=== PATIENT | female | born 1955 | race African-American/Black ===

== ENCOUNTER 2018-04-23 13:32 | Inpatient (IN) | payer MEDICARE, OTHER ==
[~2018-04-23] VITALS: Ht 172.7 cm; Wt 74.1 kg
--- NOTE | ~2018-04-23 | MORECARE ---
CASE MANAGEMENT DISCHARGE SUMMARY PATIENT: FILOMENA OTERO UNIT: [id number] ADM DATE: 04/23/18 AGE: 62 : 53 SEX: F ROOM/BED: D.2140 AUTHOR: NATALIE,DOC PHYSICIAN: REFERRING PHYSICIAN: CARLY HAYES MD DATE OF SERVICE: 05/01/18 Discharge Plan Patient Name: FILOMENA OTERO Facility: [facility]:[place] : 1955 Planned Disposition: Home with Home Health Anticipated Discharge Date: 05/01/18 Discharge Date: Expected LOS: 8 Initial Reviewer: [id number] Initial Review Date: 04/23/2018 Generated: 05/01/18 7:29 pm Comments DCP- Discharge Planning Updated by [id number]: Jasbir Jerez on 05/01/18 5:[address] Patient Name: FILOMENA OTERO Encounter No: [id number] : 1955 Primary Insurance: MEDICARE A & B Anticipated DC Date: 05-01-2018 Planned Disposition: Home with Home Health External Planned Provider: [facility] DCP follow-up note: CM SPOKE TO BEDSIDE NURSE WHO INFORMED CM THAT PT IS REPORTING NO TRANSPORTATION HOME THIS EVENING. CM MET WITH PT IN ROOM WHO HAS NOT CALLED HER FAMILY YET. BEDSIDE NURSE INFORMED CM THAT SHE CALLED JACKI PINTO, , WHO REPORTED NO TRANSPORTATION TO [facility]ATEGY EXECUTION CONSULTANT PT TODAY. CM NOTIFIED CM TRANSITIONAL STUDIES INSTRUCTOR WHO ASSISTED WITH CONTACTING PT'S DAUGHTER, ARIN, , WHO CALLED PT IN ROOM. PT DISCUSSED HAVING SOMEONE COME AND PICK HER UP WITH HER DAUGHTER WHO STATED THERE WAS NO ONE AVAILABLE THAT SHE WAS AWARE OF. CM CALLED [employer], RECEIVED QUOTE OF $290, INFORMED PT AND DAUGHTER ON THE PHONE. PT AND DAUTHTER DENIED HAVING FUNDS FOR [facility] TRANSPORT. PT INSTRUCTED HER DAUGHTER TO CALL PT'S SISTER SANDRITA AND JACKI, TO SEE IF ONE OF THEM WILL COME AND GET PT IN HER CAR. PT WILL NOTIFY CM IF SHE CAN FIND A RIDE HOME TONIGHT. CM RECEIVED MESSAGE FROM FAMILY SERVICE AIDE THAT PT REPORTS JACKI IS ON HIS WAY TO GET PT AFTER 8PM TONIGHT. CM FAXED DISCHARGE INFORMATION TO [facility] AT [phone]. JASBIR JERZE, CASE MANAGEMENT DCP- Discharge Planning Updated by [id number]: Jasbir Jerez on 04/29/18 3:[address] Patient Name: FILOMENA OTERO Admission Status: Elective Accout number: [id number] Admission Date: 04-23-2018 : 1955 Admission Diagnosis:ACUTE KIDNEY FAILURE, UNSPECIFIED Attending: CARLY HAYES Current LOS: 6 Anticipated DC Date: 04-29-2018 Planned Disposition: Home WITH HOME HEALTH Primary Insurance: MEDICARE A & B PLANNED EXTERNAL PROVIDER: [facility] RESUMPTION Discharge Planning Comments: CM MET WITH PT IN ROOM TO DISCUSS DISCHARGE PLANNING AND NEEDS. PT REPORTS LIVING AT HOME DEPENDENTLY WITH HER ADULT DAUGHTER WHO ASSISTS WITH TRANSFERS IN AND OUT OF THE SHOWER. PT REPORTS HAVING BEDSIDE COMMODE, SHOWERCHAIR, WALKER AND WHEELCHAIR WITH NO MEDICAL EQUIPMENT PROVIDER PREFERENCE. PT HAS HOME HEALTH WITH [facility] FOR NURSING OUT OF [place]. CM DISCUSSED AVAILABILITY OF HOME HEALTH, REHAB SERVICES AND MEDICAL EQUIPMENT. PT DENIES DISCHARGE NEEDS, REPORTS PLAN TO RETURN HOME, JACKI SRIVASTAVA TO TRANSPORT HOME AT DISCHARGE. IMPORTANT MESSAGE FROM MEDICARE PROVIDED AND EXPLAINED. CM CALLED [facility], [place] OFFICE, , SPOKE TO MIGEL WHO VERIFIED PT IS ON HOLD WITH NURSING. CM FAXED UPDATE TO [facility] AT [phone]. FOR DISCHARGE AND RESUMPTION OF [facility], NOTIFY [facility] AT [phone], FAX DISCHARGE INFORMATION TO [facility] AT [phone]. Physician Industrial: Jasbir Jerez Appended by Jasbir Jerez on 04/29/2018 16:17 CDT: CM RECEIVED INPATIENT REHAB PRESCREENING ORDER, MET WITH PT IN ROOM AND DISCUSSED REHAB OPTIONS, LOCATIONS AND PROVIDERS. PT DOES NOT WANT INPATIENT REHAB, WANTS TO GO HOME AND RESUME HOME HEALTH WITH [facility]. PT DENIES NEED OF ANY THERAPY SERVICES, INPATIENT, SHELTER OR WITH HOME HEALTH. PT REPORTS USING HER WHEELCHAIR AND WALKER AND HAS ALREADY BEEN THROUGH THERAPY AND NO LONGER NEEDS IT. FOR DISCHARGE AND RESUMPTION OF [facility], NOTIFY [facility] AT [phone], FAX DISCHARGE INFORMATION TO [facility] AT [phone]. Physician Industrial: Jasbir Jerez DCPIA - Discharge Planning Initial Assessment Updated by [email or web address]: Jasbir Jerez on 04/29/18 12:42 pm * Is the patient Alert and Oriented? Yes * How many steps to enter\exit or inside your home? * PCP [facility] * Pharmacy [place] [facility] OR [facility] [place] * Preadmission Environment Home with Family * ADLs Partial Dependent * Partial ADLs (Assistance needed) Bathing * Equipment Bedside Commode Shower Chair Walker Wheelchair * Other Equipment NO MEDICAL EQUIPMENT PROVIDER PREFERENCE * List name and contact numbers for known caregivers / representatives who currently or will assist patient after discharge: ARIN OTERO DTChhaya, AMMON BOLTON, * Verbal permission to speak to the caregivers and representatives has been obtained from the patient. N/A * Community resources currently utilized Home Health * Please name any agencies selected above. [facility] - NURSING [phone] * Additional services required to return to the preadmission environment? No * Can the patient safely return to the preadmission environment? Yes * Has this patient been hospitalized within the prior 30 days at any hospital? No Coverage Notice Reviewer: [id number] - Jasibr Jerez Notice Issued Date-Time: 04/29/2018 12:30 Notice Type: IM Discharge Notice Notice Delivered To: Patient Relationship to Patient: Mechanic Name: Delivery Method: HAND - Hand Delivered Sigrid Days: Prior Verbal Notification: Recipient Understood Notice: Yes Recipient Signature: Yes Med Rec Note Co-signed by Attending: Coverage Notice Comment: Last DP export: 05/01/18 5:05 p Patient Name: FILOMENA OTERO Page 13662 at 1829 All edits/amendments must be made on the electronic document DICTATION DATE: 05/01/181828 DEFECT CUTTER: KINZA 05/01/181828 RPT#: [id number] DC DATE: STATUS: ADM IN [facility] [address] [place] [address] END OF REPORT
--- NOTE | ~2018-04-23 | MORECARE ---
CASE MANAGEMENT DISCHARGE SUMMARY PATIENT: FILOMENA OTERO UNIT: [id number] ADM DATE: 04/23/18 AGE: 62 : 53 SEX: F ROOM/BED: D.2140 AUTHOR: NATALIE,DOC PHYSICIAN: REFERRING PHYSICIAN: CARLY HAYES MD DATE OF SERVICE: 05/01/18 Discharge Plan Patient Name: FILOMENA OTERO Facility: [facility]:[place] : 1955 Planned Disposition: Home with Home Health Anticipated Discharge Date: 05/01/18 Discharge Date: Expected LOS: 8 Initial Reviewer: [id number] Initial Review Date: 04/23/2018 Generated: 05/01/18 6:52 pm Comments DCP- Discharge Planning Updated by HERMAN: Jasbir Killian on 05/01/18 4:[address] Patient Name: FILOMENA OTERO Encounter No: [id number] : 1955 Primary Insurance: MEDICARE A & B Anticipated DC Date: 05-01-2018 Planned Disposition: Home with Home Health External Planned Provider: [facility] DCP follow-up note: DCP- Discharge Planning Updated by HERMAN: Jasbir Killian on 04/29/18 3:[address] Patient Name: FILOMENA OTERO Admission Status: Elective Accout number: [id number] Admission Date: 04-23-2018 : 1955 Admission Diagnosis:ACUTE KIDNEY FAILURE, UNSPECIFIED Attending: CARLY HAYES Current LOS: 6 Anticipated DC Date: 04-29-2018 Planned Disposition: Home WITH HOME HEALTH Primary Insurance: MEDICARE A & B PLANNED EXTERNAL PROVIDER: [facility] RESUMPTION Discharge Planning Comments: CM MET WITH PT IN ROOM TO DISCUSS DISCHARGE PLANNING AND NEEDS. PT REPORTS LIVING AT HOME DEPENDENTLY WITH HER ADULT DAUGHTER WHO ASSISTS WITH TRANSFERS IN AND OUT OF THE SHOWER. PT REPORTS HAVING BEDSIDE COMMODE, SHOWERCHAIR, WALKER AND WHEELCHAIR WITH NO MEDICAL EQUIPMENT PROVIDER PREFERENCE. PT HAS HOME HEALTH WITH [facility] FOR NURSING OUT OF [place]. CM DISCUSSED AVAILABILITY OF HOME HEALTH, REHAB SERVICES AND MEDICAL EQUIPMENT. PT DENIES DISCHARGE NEEDS, REPORTS PLAN TO RETURN HOME, JACKI ATIF TO TRANSPORT HOME AT DISCHARGE. IMPORTANT MESSAGE FROM MEDICARE PROVIDED AND EXPLAINED. CM CALLED [facility], [place] OFFICE, , SPOKE TO MIGEL WHO VERIFIED PT IS ON HOLD WITH NURSING. CM FAXED UPDATE TO [facility] AT [phone]. FOR DISCHARGE AND RESUMPTION OF [facility], NOTIFY [facility] AT [phone], FAX DISCHARGE INFORMATION TO [facility] AT [phone]. Remote Encoding Center Manager: Jasbir Killian Appended by Jasbir Killian on 04/29/2018 16:17 CDT: CM RECEIVED INPATIENT REHAB PRESCREENING ORDER, MET WITH PT IN ROOM AND DISCUSSED REHAB OPTIONS, LOCATIONS AND PROVIDERS. PT DOES NOT WANT INPATIENT REHAB, WANTS TO GO HOME AND RESUME HOME HEALTH WITH [facility]. PT DENIES NEED OF ANY THERAPY SERVICES, INPATIENT, HALFWAY OR WITH HOME HEALTH. PT REPORTS USING HER WHEELCHAIR AND WALKER AND HAS ALREADY BEEN THROUGH THERAPY AND NO LONGER NEEDS IT. FOR DISCHARGE AND RESUMPTION OF [facility], NOTIFY [facility] AT [phone], FAX DISCHARGE INFORMATION TO [facility] AT [phone]. Remote Encoding Center Manager: Jasbir Killian DCPIA - Discharge Planning Initial Assessment Updated by [email or web address]: Jasbir Killian on 04/29/18 12:42 pm * Is the patient Alert and Oriented? Yes * How many steps to enter\exit or inside your home? * PCP [facility] [place] * Pharmacy [place] [facility] ORDER OR [facility] [place] * Preadmission Environment Home with Family * ADLs Partial Dependent * Partial ADLs (Assistance needed) Bathing * Equipment Bedside Commode Shower Chair Walker Wheelchair * Other Equipment NO MEDICAL EQUIPMENT PROVIDER PREFERENCE * List name and contact numbers for known caregivers / representatives who currently or will assist patient after discharge: ARIN OTERO DTChhaya, JACKI PINTO, JAILER/TRAINING OFFICER, * Verbal permission to speak to the caregivers and representatives has been obtained from the patient. N/A * Community resources currently utilized Home Health * Please name any agencies selected above. [facility] - NURSING [phone] * Additional services required to return to the preadmission environment? No * Can the patient safely return to the preadmission environment? Yes * Has this patient been hospitalized within the prior 30 days at any hospital? No Coverage Notice Reviewer: [id number] Perico Killian Notice Issued Date-Time: 04/29/2018 12:30 Notice Type: IM Discharge Notice Notice Delivered To: Patient Relationship to Patient: Mine Analyst Name: Delivery Method: HAND - Hand Delivered Sigrid Days: Prior Verbal Notification: Recipient Understood Notice: Yes Recipient Signature: Yes Med Rec Note Co-signed by Attending: Coverage Notice Comment: Last DP export: 04/29/18 3:19 Patient Name: FILOMENA OTERO Page 57327 at 1752 All edits/amendments must be made on the electronic document DICTATION DATE: 05/01/181751 PATIENT OBSERVATION ASSISTANT: KINZA 05/01/181751 RPT#: [id number] DC DATE: STATUS: ADM IN [facility] [address] [place] [address] END OF REPORT
--- NOTE | ~2018-04-23 | MORECARE ---
CASE MANAGEMENT DISCHARGE SUMMARY PATIENT: FILOMENA OTERO UNIT: [id number] ADM DATE: 04/23/18 AGE: 62 : 53 SEX: F ROOM/BED: D.2140 AUTHOR: NATALIE,DOC PHYSICIAN: REFERRING PHYSICIAN: CARLY HAYES MD DATE OF SERVICE: 04/29/18 Discharge Plan Patient Name: FILOMENA OTERO Facility: [facility]:[place] : 1955 Planned Disposition: Home with Home Health Anticipated Discharge Date: 04/29/18 Discharge Date: Expected LOS: 6 Initial Reviewer: [id number] Initial Review Date: 04/23/2018 Generated: 04/29/18 5:19 pm Comments DCP- Discharge Planning Updated by [id number]: Jasbir Killian on 04/29/18 3:[address] Patient Name: FILOMENA OTERO Admission Status: Elective Accout number: [id number] Admission Date: 04-23-2018 : 1955 Admission Diagnosis:ACUTE KIDNEY FAILURE, UNSPECIFIED Attending: CARLY HAYES Current LOS: 6 Anticipated DC Date: 04-29-2018 Planned Disposition: Home WITH HOME HEALTH Primary Insurance: MEDICARE A & B PLANNED EXTERNAL PROVIDER: [facility] RESUMPTION Discharge Planning Comments: CM MET WITH PT IN ROOM TO DISCUSS DISCHARGE PLANNING AND NEEDS. PT REPORTS LIVING AT HOME DEPENDENTLY WITH HER ADULT DAUGHTER WHO ASSISTS WITH TRANSFERS IN AND OUT OF THE SHOWER. PT REPORTS HAVING BEDSIDE COMMODE, SHOWERCHAIR, WALKER AND WHEELCHAIR WITH NO MEDICAL EQUIPMENT PROVIDER PREFERENCE. PT HAS HOME HEALTH WITH [facility] FOR NURSING OUT OF [place]. CM DISCUSSED AVAILABILITY OF HOME HEALTH, REHAB SERVICES AND MEDICAL EQUIPMENT. PT DENIES DISCHARGE NEEDS, REPORTS PLAN TO RETURN HOME, JACKI DUNIAER TO TRANSPORT HOME AT DISCHARGE. IMPORTANT MESSAGE FROM MEDICARE PROVIDED AND EXPLAINED. CM CALLED [facility], [place] OFFICE, , SPOKE TO MIGEL WHO VERIFIED PT IS ON HOLD WITH NURSING. CM FAXED UPDATE TO [facility] AT [phone]. FOR DISCHARGE AND RESUMPTION OF [facility], NOTIFY [facility] AT [phone], FAX DISCHARGE INFORMATION TO [facility] AT [phone]. Bag Grader: Jasbir Killian Appended by Jasbir Killian on 04/29/2018 16:17 CDT: CM RECEIVED INPATIENT REHAB PRESCREENING ORDER, MET WITH PT IN ROOM AND DISCUSSED REHAB OPTIONS, LOCATIONS AND PROVIDERS. PT DOES NOT WANT INPATIENT REHAB, WANTS TO GO HOME AND RESUME HOME HEALTH WITH [facility]. PT DENIES NEED OF ANY THERAPY SERVICES, INPATIENT, DETENTION OR WITH HOME HEALTH. PT REPORTS USING HER WHEELCHAIR AND WALKER AND HAS ALREADY BEEN THROUGH THERAPY AND NO LONGER NEEDS IT. FOR DISCHARGE AND RESUMPTION OF [facility], NOTIFY [facility] AT [phone], FAX DISCHARGE INFORMATION TO [facility] AT [phone]. Bag Grader: Jasbir Killian DCPIA - Discharge Planning Initial Assessment Updated by [id number]: Jasbir Killian on 04/29/18 12:42 pm * Is the patient Alert and Oriented? Yes * How many steps to enter\exit or inside your home? * PCP [place], [place] * Pharmacy [place] [facility] ORDER OR [facility] IN [place] * Preadmission Environment Home with Family * ADLs Partial Dependent * Partial ADLs (Assistance needed) Bathing * Equipment Bedside Commode Shower Chair Walker Wheelchair * Other Equipment NO MEDICAL EQUIPMENT PROVIDER PREFERENCE * List name and contact numbers for known caregivers / representatives who currently or will assist patient after discharge: ARIN OTERO DTR, JACKI PINTO, TRIGONOMETRY TEACHER, * Verbal permission to speak to the caregivers and representatives has been obtained from the patient. N/A * Community resources currently utilized Home Health * Please name any agencies selected above. [facility] - NURSING [phone] * Additional services required to return to the preadmission environment? No * Can the patient safely return to the preadmission environment? Yes * Has this patient been hospitalized within the prior 30 days at any hospital? No Coverage Notice Reviewer: [id number] - Jasbir Killian Notice Issued Date-Time: 04/29/2018 12:30 Notice Type: IM Discharge Notice Notice Delivered To: Patient Relationship to Patient: Senior Coldfusion Developer Name: Delivery Method: HAND - Hand Delivered Sigrid Days: Prior Verbal Notification: Recipient Understood Notice: Yes Recipient Signature: Yes Med Rec Note Co-signed by Attending: Coverage Notice Comment: Last DP export: 04/29/18 11:56 Patient Name: FILOMENA OTERO Page 63389 at 1619 All edits/amendments must be made on the electronic document DICTATION DATE: 04/29/181618 RISK MANAGEMENT DIRECTOR: KINZA 04/29/181618 RPT#: [id number] DC DATE: STATUS: ADM IN [facility] [address] [place] [address] END OF REPORT
--- NOTE | ~2018-04-23 | MORECARE ---
CASE MANAGEMENT DISCHARGE SUMMARY PATIENT: FILOMENA OTERO UNIT: [id number] ADM DATE: 04/23/18 AGE: 62 : 53 SEX: F ROOM/BED: D.2140 AUTHOR: JENNIFER ESTRADA PHYSICIAN: REFERRING PHYSICIAN: CARLY HAYES MD DATE OF SERVICE: 04/29/18 Discharge Plan Patient Name: FILOMENA OTERO Facility: [facility]:[place] : 1955 Planned Disposition: Home Anticipated Discharge Date: 04/29/18 Discharge Date: Expected LOS: 6 Initial Reviewer: [id number] Initial Review Date: 04/23/2018 Generated: 04/29/18 1:34 pm Coverage Notice Reviewer: [id number] - Jasbir Killian Notice Issued Date-Time: 04/29/2018 12:30 Notice Type: IM Discharge Notice Notice Delivered To: Patient Relationship to Patient: Home Energy Rater Name: Delivery Method: HAND - Hand Delivered Sigrid Days: Prior Verbal Notification: Recipient Understood Notice: Yes Recipient Signature: Yes Med Rec Note Co-signed by Attending: Coverage Notice Comment: Patient Name: FILOMENA OTERO Page 30776 at 1235 All edits/amendments must be made on the electronic document DICTATION DATE: 04/29/18 1234 ELECTROMEDICAL SERVICE ENGINEER: KINZA 04/29/18 1234 RPT#: [id number] DC DATE: STATUS: ADM IN [place] [address] [place] [address] END OF REPORT
--- NOTE | ~2018-04-23 | MORECARE ---
CASE MANAGEMENT DISCHARGE SUMMARY PATIENT: FILOMENA OTERO UNIT: [id number] ADM DATE: 04/23/18 AGE: 62 : 53 SEX: F ROOM/BED: D.2140 AUTHOR: NATALIE,DOC PHYSICIAN: REFERRING PHYSICIAN: CARLY HAYES MD DATE OF SERVICE: 05/01/18 Discharge Plan Patient Name: FILOMENA OTERO Facility: [facility]:[place] : 1955 Planned Disposition: Home with Home Health Anticipated Discharge Date: 05/01/18 Discharge Date: Expected LOS: 8 Initial Reviewer: [id number] Initial Review Date: 04/23/2018 Generated: 05/01/18 7:05 pm Comments DCP- Discharge Planning Updated by [email or web address]: Jasbir Killian on 05/01/18 5:[address] Patient Name: FILOMENA OTERO Encounter No: [id number] : 1955 Primary Insurance: MEDICARE A & B Anticipated DC Date: 05-01-2018 Planned Disposition: Home with Home Health External Planned Provider: [facility] DCP follow-up note: CM SPOKE TO BEDSIDE NURSE WHO INFORMED CM THAT PT IS REPORTING NO TRANSPORTATION HOME THIS EVENING. CM MET WITH PT IN ROOM WHO HAS NOT CALLED HER FAMILY YET. BEDSIDE NURSE INFORMED CM THAT SHE CALLED JACKI PINTO, , WHO REPORTED NO TRANSPORTATION TO [facility] PT TODAY. CM NOTIFIED CM COOK HELPER DESSERT WHO ASSISTED WITH CONTACTING PT'S DAUGHTER, ARIN, , WHO CALLED PT IN ROOM. PT DISCUSSED HAVING SOMEONE COME AND PICK HER UP WITH HER DAUGHTER WHO STATED THERE WAS NO ONE AVAILABLE THAT SHE WAS AWARE OF. CM CALLED [employer], RECEIVED QUOTE OF $290, INFORMED PT AND DAUGHTER ON THE PHONE. PT AND MIGUELTER DENIED HAVING FUNDS FOR [facility] TRANSPORT. PT INSTRUCTED DCP- Discharge Planning Updated by [id number]: Jasbir Killian on 04/29/18 3:[address] Patient Name: FILOMENA OTERO Admission Status: Elective Accout number: [id number] Admission Date: 04-23-2018 : 1955 Admission Diagnosis:ACUTE KIDNEY FAILURE, UNSPECIFIED Attending: CARLY HAYES Current LOS: 6 Anticipated DC Date: 04-29-2018 Planned Disposition: Home WITH HOME HEALTH Primary Insurance: MEDICARE A & B PLANNED EXTERNAL PROVIDER: [facility] RESUMPTION Discharge Planning Comments: CM MET WITH PT IN ROOM TO DISCUSS DISCHARGE PLANNING AND NEEDS. PT REPORTS LIVING AT HOME DEPENDENTLY WITH HER ADULT DAUGHTER WHO ASSISTS WITH TRANSFERS IN AND OUT OF THE SHOWER. PT REPORTS HAVING BEDSIDE COMMODE, SHOWERCHAIR, WALKER AND WHEELCHAIR WITH NO MEDICAL EQUIPMENT PROVIDER PREFERENCE. PT HAS HOME HEALTH WITH [facility] FOR NURSING OUT OF [place]. CM DISCUSSED AVAILABILITY OF HOME HEALTH, REHAB SERVICES AND MEDICAL EQUIPMENT. PT DENIES DISCHARGE NEEDS, REPORTS PLAN TO RETURN HOME, JACKI ATIF TO TRANSPORT HOME AT DISCHARGE. IMPORTANT MESSAGE FROM MEDICARE PROVIDED AND EXPLAINED. CM CALLED [facility], [place] OFFICE, , SPOKE TO MIGEL WHO VERIFIED PT IS ON HOLD WITH NURSING. CM FAXED UPDATE TO [facility] AT [phone]. FOR DISCHARGE AND RESUMPTION OF [facility], NOTIFY [facility] AT [phone], FAX DISCHARGE INFORMATION TO [facility] AT [phone]. Spray Dyer: Jasbir Killian Appended by Jasbir Killian on 04/29/2018 16:17 CDT: CM RECEIVED INPATIENT REHAB PRESCREENING ORDER, MET WITH PT IN ROOM AND DISCUSSED REHAB OPTIONS, LOCATIONS AND PROVIDERS. PT DOES NOT WANT INPATIENT REHAB, WANTS TO GO HOME AND RESUME HOME HEALTH WITH [facility]. PT DENIES NEED OF ANY THERAPY SERVICES, INPATIENT, SHELTER OR WITH HOME HEALTH. PT REPORTS USING HER WHEELCHAIR AND WALKER AND HAS ALREADY BEEN THROUGH THERAPY AND NO LONGER NEEDS IT. FOR DISCHARGE AND RESUMPTION OF [facility], NOTIFY [facility] AT [phone], FAX DISCHARGE INFORMATION TO [facility] AT [phone]. Spray Dyer: Jasbir Killian DCPIA - Discharge Planning Initial Assessment Updated by [id number]: Jasbir Killian on 04/29/18 12:42 pm * Is the patient Alert and Oriented? Yes * How many steps to enter\exit or inside your home? * PCP [facility] [place] * Pharmacy [place] [facility] OR [facility] IN [place] * Preadmission Environment Home with Family * ADLs Partial Dependent * Partial ADLs (Assistance needed) Bathing * Equipment Bedside Commode Shower Chair Walker Wheelchair * Other Equipment NO MEDICAL EQUIPMENT PROVIDER PREFERENCE * List name and contact numbers for known caregivers / representatives who currently or will assist patient after discharge: ARIN OTERO, DTR, JACKI PINTO, MODEL HOME SALES GREETER, * Verbal permission to speak to the caregivers and representatives has been obtained from the patient. N/A * Community resources currently utilized Home Health * Please name any agencies selected above. [facility] [phone] * Additional services required to return to the preadmission environment? No * Can the patient safely return to the preadmission environment? Yes * Has this patient been hospitalized within the prior 30 days at any hospital? No Coverage Notice Reviewer: [id number] Perico Killian Notice Issued Date-Time: 04/29/2018 12:30 Notice Type: IM Discharge Notice Notice Delivered To: Patient Relationship to Patient: Stringer Up Soldering Machine Name: Delivery Method: HAND - Hand Delivered Sigrid Days: Prior Verbal Notification: Recipient Understood Notice: Yes Recipient Signature: Yes Med Rec Note Co-signed by Attending: Coverage Notice Comment: Last DP export: 05/01/18 4:52 p Patient Name: FILOMENA OTEOR Page 70761 at 1805 All edits/amendments must be made on the electronic document DICTATION DATE: 05/01/181803 TEMPLATE INSPECTOR: KINZA 05/01/181803 RPT#: [id number] DC DATE: STATUS: ADM IN [facility] [address] [place] [address] END OF REPORT
--- NOTE | ~2018-04-23 | MORECARE ---
CASE MANAGEMENT DISCHARGE SUMMARY PATIENT: FILOMENA OTEOR UNIT: [id number] ADM DATE: 04/23/18 AGE: 62 : 53 SEX: F ROOM/BED: D.2140 AUTHOR: NATALIE,DOC PHYSICIAN: REFERRING PHYSICIAN: CARLY HAYES MD DATE OF SERVICE: 04/29/18 Discharge Plan Patient Name: FILOMENA OTERO Facility: [facility]:[place] : 1955 Planned Disposition: Home Anticipated Discharge Date: 04/29/18 Discharge Date: Expected LOS: 6 Initial Reviewer: [email or web address] Initial Review Date: 04/23/2018 Generated: 04/29/18 1:56 pm Comments DCP- Discharge Planning Updated by [email or web address]: Jasbir Killian on 04/29/18 11:[address] Patient Name: FILOMENA OTERO Admission Status: Elective Accout number: [id number] Admission Date: 04-23-2018 : 1955 Admission Diagnosis:ACUTE KIDNEY FAILURE, UNSPECIFIED Attending: CARLY HAYES Current LOS: 6 Anticipated DC Date: 04-29-2018 Planned Disposition: Home WITH HOME HEALTH Primary Insurance: MEDICARE A & B PLANNED EXTERNAL PROVIDER: [facility] RESUMPTION Discharge Planning Comments: CM MET WITH PT IN ROOM TO DISCUSS DISCHARGE PLANNING AND NEEDS. PT REPORTS LIVING AT HOME DEPENDENTLY WITH HER ADULT DAUGHTER WHO ASSISTS WITH TRANSFERS IN AND OUT OF THE SHOWER. PT REPORTS HAVING BEDSIDE COMMODE, SHOWERCHAIR, WALKER AND WHEELCHAIR WITH NO MEDICAL EQUIPMENT PROVIDER PREFERENCE. PT HAS HOME HEALTH WITH [facility] FOR NURSING OUT OF [place]. CM DISCUSSED AVAILABILITY OF HOME HEALTH, REHAB SERVICES AND MEDICAL EQUIPMENT. PT DENIES DISCHARGE NEEDS, REPORTS PLAN TO RETURN HOME, [facility] TO TRANSPORT HOME AT DISCHARGE. IMPORTANT MESSAGE FROM MEDICARE PROVIDED AND EXPLAINED. CM CALLED [facility], [place] OFFICE, , SPOKE TO MIGEL WHO VERIFIED PT IS ON HOLD WITH NURSING. CM FAXED UPDATE TO [facility] AT [phone]. FOR DISCHARGE AND RESUMPTION OF [facility], NOTIFY [facility] AT [phone], FAX DISCHARGE INFORMATION TO [facility] AT [phone]. Nursing Faculty: Jasbir Maria D DCPIA - Discharge Planning Initial Assessment Updated by [email or web address]: Jasbir Killian on 04/29/18 12:42 pm * Is the patient Alert and Oriented? Yes * How many steps to enter\exit or inside your home? * PCP [facility] [place] * [facility]acy [facility] [place] * Preadmission Environment Home with Family * ADLs Partial Dependent * Partial ADLs (Assistance needed) Bathing * Equipment Bedside Commode Shower Chair Walker Wheelchair * Other Equipment NO MEDICAL EQUIPMENT PROVIDER PREFERENCE * List name and contact numbers for known caregivers / representatives who currently or will assist patient after discharge: ARIN OTERO DTR, AMMON BOLTON, * Verbal permission to speak to the caregivers and representatives has been obtained from the patient. N/A * Community resources currently utilized Home Health * Please name any agencies selected above. [facility] - NURSING [phone] * Additional services required to return to the preadmission environment? No * Can the patient safely return to the preadmission environment? Yes * Has this patient been hospitalized within the prior 30 days at any hospital? No External Providers External Provider: [facility] Next Contact Date: 04/29/2018 Service Request Date: Service Type: Resolution: Reviewer: Comments: Coverage Notice Reviewer: [id number] - Jasbir Killian Notice Issued Date-Time: 04/29/2018 12:30 Notice Type: IM Discharge Notice Notice Delivered To: Patient Relationship to Patient: Gre Instructor Name: Delivery Method: HAND - Hand Delivered Sigrid Days: Prior Verbal Notification: Recipient Understood Notice: Yes Recipient Signature: Yes Med Rec Note Co-signed by Attending: Coverage Notice Comment: Last DP export: 04/29/18 11:49 Patient Name: FILOMENA OTERO Page [id number] at 1257 All edits/amendments must be made on the electronic document DICTATION DATE: 04/29/18 1256 DATA MINER: KINZA 04/29/18 1256 RPT#: [id number] DC DATE: STATUS: ADM IN [facility] [address] [place] [address] END OF REPORT
--- NOTE | ~2018-04-23 | HEMODYNAMI ---
PATIENT:FILOMENA OTERO MEDICAL RECORD: [id number] : 51 LOCATION:[facility].2140 ADMISSION DATE: 04/23/18 Generatedon:04/25/20188:44 Patient name: FILOMENA OTERO Patient #: [id number] SSN: : 1955 Date of study: 04/25/2018 Page: Of Hemodynamic Procedure Report Patient Data Patient Demographics Procedure consent was obtained First Name: FILOMENA Gender: Female Last Name: SHANNA : 1955 Patient #: [id number] Age: 62 year(s) Race: Black Additional ID: [id number] Contact details Address: [address] [place] [address] AVE State: [place] City: [place] Zip code: [address] Admission Admission Data Admission Date: 04/23/2018 Admission Time: 16:48 Room #: D.2140 Procedure Procedure Types Cath Procedure Peripheral Cath Diagnostic Procedure Nephro Procedure Description Procedure Date Procedure Date: 04/25/2018 Procedure Start Time: 8:27 Procedure Staff Name Function Samy Genao MD Performing Physician Wilder Bagley RT Monitor Sobia Hameed RN Nurse Procedure Data Cath Procedure Fluoroscopy Diagnostic fluoroscopy Total fluoroscopy Time: 1.7 time: 1.7 min min Diagnostic fluoroscopy Total fluoroscopy dose: 28 dose: 28 mGy mGy Contrast Material Contrast Material Type Amount (ml) Isovue 300 12 Hemodynamics Rest Heart Rate: 73 (bpm) Snapshots Pre Cath Intra NCS Post Cath Vital Signs Time Heart Resp SPO2 etCO2 NIBP (mmHg) Rhythm Pain Sedation Rate (ipm) (%) (mmHg) Status Level (bpm) 8:17:15 72 14 99 0 Measuring NSR 0 (11) 10(A) , No pain 8:18:37 75 15 98 0 Time NSR 0 (11) 10(A) Exceeded , No pain 8:21:06 73 17 98 0 157/84(124) NSR 0 (11) 10(A) , No pain 8:25:39 72 14 99 0 161/90(116) NSR 0 (11) 10(A) , No pain 8:30:13 76 18 100 0 154/99(126) NSR 0 (11) 10(A) , No pain 8:34:41 72 25 99 0 175/106(134) NSR 0 (11) 10(A) , No pain 8:39:18 75 14 100 0 148/96(126) NSR 0 (11) 10(A) , No pain 8:43:47 100 0 167/90(138) NSR 0 (11) 10(A) , No pain Procedure Log Time Note 7:54:24 Wilder Kevyn RT (R) (CV) sent for patient. Start room use. 7:54:27 Time tracking: Regular hours (M-F 7:00 - 5:00) 7:54:32 Plan of Care:Hemodynamics will remain stable., Cardiac rhythm will remain stable., Comfort level will be maintained., Respiratory function will remain adequate., Patient/ family verbilizes understanding of procedure., Procedure tolerated without complication., Recovers from procedure without complications.. 7:54:48 Patient received from [employer] II to IR Alert and oriented. Tansferred to table in Prone position. 7:54:52 Correct patient and procedure confirmed by team. 7:54:54 Signed procedure consent form obtained from patient. 7:54:54 ECG and BP/O2 sat monitors applied to patient. 7:55:15 7:55:19 H&P Date Dictated: 04/25/2018 Within 30 days and on chart.. 7:55:19 Pre-procedure instructions explained to patient. 7:55:20 Pre-op teaching completed and patient verbalized understanding. 7:55:22 Family unavailable. 7:55:24 Patient NPO since Midnight. 7:55:31 Is the patient allergic to Iodine/contrast media? No. 7:55:33 Is patient on blood thinner?No 7:55:35 Patient diabetic? No. 7:55:36 7:55:36 ----Pre-sedation anethsthesia assessment.---- 7:55:39 Previous problem with sedation/anesthesia? No ? 7:55:43 Snore? Yes 7:55:45 Sleep apnea? No 7:55:49 Deviated septum? No 7:55:51 Opens mouth fully? No 7:55:52 Sticks out tongue? Yes 7:55:55 Airway obstruction? No ? 7:55:59 Dentures? Yes out 7:56:08 IV patent on arrival in port with 0.9% NaCl at KVO. 7:56:14 Use device set IR Diagnostic 7:56:15 Bag Decanter (2002S) opened to sterile field. 7:56:16 Sterile Angiographic Pack opened to sterile field. 8:15:25 Vital chart was started 8:15:28 Baseline sample Acquired. 8:22:39 Alarms reviewed by RAlejandro N. 8:22:39 Sharps counted by scrub and verified by R.N. 8:22:47 right Lumbar area was prepped with chlora-prep and draped in sterile fashion 8:23:10 Physician arrived 8:23:10 --------ALL STOP TIME OUT------ 8:23:18 Final Timeout: patient, procedure, and site verified with staff and physician. All members of the team are in agreement. 8:23:22 Lumbar site verified by team. 8:23:29 Sedation plan: IV Moderate Sedation Medication:Versed, Fentanyl 8:26:58 Procedure started. 8:27:03 Local anesthetic to Lumbar area with Lidocaine 1% by Samy Genao MD.INITIAL ACCESS ONLY 8:27:38 BAG, DRAINAGE EMPTY 600ML W/KATALINA ([id number]) opened to sterile field. 8:27:43 STOPCOCK 3-Way Large Bore ([id number]) opened to sterile field. 8:30:30 ROADRUNNER .035 145 glide wire ([id number]) opened to sterile field. 8:32:06 Moody Sci All Purpose 10Fr drainage catheter ([id number]) opened to sterile field. 8:38:01 Procedure ended.(Physican Out) 8:38:24 Fluoroscopy time 01.70 minutes. 8:38:27 Fluoroscopy dose: 28 mGy 8:38:27 Flurop Dose total: 28 8:38:33 Contrast amount:Isovue 300 12ml. 8:38:49 SUTURE ETHILON 2-0 BLK MONO FS opened to sterile field. 8:38:58 Sharps counted by scrub and verified by R.N. 8:39:06 Post-op/insertion site Right Lumbar area dressed using a 4 x 4 and Tegaderm. 8:43:53 Post procedure instruction explained to patient.Patient verbalizes understanding. 8:43:54 Procedure and supply charges have been captured, reviewed, submitted and are correct. 8:43:58 Report given to [facility] II. 8:44:01 Patient transfered to [facility] with Bed. 8:44:18 Vital chart was stopped Device Usage Item Name Manufacture Quantity Catalog Hospital Part Current Minimal Lot# / Number Charge Number Stock Stock Serial# Code Bag Decanter Microtek 1 2001S 063513 21741 [id number] 5 () Medical Inc. Sterile Cardinal [address] 137992 247087 5 Angiographic Health Pack BAG, Merit 1 [id number] 251135 654214 339379 5 DRAINAGE Medical EMPTY 600ML W/KATALINA (FOQ015) [facility] 1 [id number] 390333 4814 076543 [address] 3-Way Large Bore (T83783) [facility] 1 S02480 074052 416935 420194 5 2391622 .035 145 glide wire (S55506) Moody [employer] Moody 1 [id number] 078241 714181 217228 5 All Purpose Scientific 10Fr drainage catheter ([id number]) SUTURE Ethicon 1 664H 230913 024934 5 ETHILON 2-0 BLK MONO FS Signature Audit Priddy Stage Time Signature Unsigned Intra-Procedure 04/25/2018 Wilder 8:44:14 AM [place] RT (R) (CV) Signatures Monitor : Wilder Signature : [place] RT Date : Time : [address] [place] [address]
--- NOTE | ~2018-04-23 | MORECARE ---
CASE MANAGEMENT DISCHARGE SUMMARY PATIENT: FILOMENA OTERO UNIT: [id number] ADM DATE: 04/23/18 AGE: 62 : 51 SEX: F ROOM/BED: D.2140 AUTHOR: JENNIFER ESTRADA PHYSICIAN: REFERRING PHYSICIAN: CARLY HAYES MD DATE OF SERVICE: 04/29/18 Discharge Plan Patient Name: FILOMENA OTERO Facility: [facility]:[place] : 1955 Planned Disposition: Home Anticipated Discharge Date: 04/29/18 Discharge Date: Expected LOS: 6 Initial Reviewer: [email or web address] Initial Review Date: 04/23/2018 Generated: 04/29/18 1:41 pm Coverage Notice Reviewer: [id number] Perico Killian Notice Issued Date-Time: 04/29/2018 12:30 Notice Type: IM Discharge Notice Notice Delivered To: Patient Relationship to Patient: Cdl Driver Name: Delivery Method: HAND - Hand Delivered Sigrid Days: Prior Verbal Notification: Recipient Understood Notice: Yes Recipient Signature: Yes Med Rec Note Co-signed by Attending: Coverage Notice Comment: Last DP export: 04/29/18 11:34 Patient Name: FILOMENA OTERO Page 25523 at 1241 All edits/amendments must be made on the electronic document DICTATION DATE: 04/29/18 1241 GETTERING OPERATOR: KINZA 04/29/18 1241 RPT#: [id number] DC DATE: STATUS: ADM IN [facility] [address] [place] [address] END OF REPORT
--- NOTE | ~2018-04-23 | MORECARE ---
CASE MANAGEMENT DISCHARGE SUMMARY PATIENT: FILOMENA OTERO UNIT: [id number] ADM DATE: 04/23/18 AGE: 62 : 53 SEX: F ROOM/BED: D.2140 AUTHOR: NATALIE,DOC PHYSICIAN: REFERRING PHYSICIAN: CARLY HAYES MD DATE OF SERVICE: 04/29/18 Discharge Plan Patient Name: FILOMENA OTERO Facility: [facility]:[place] : 1955 Planned Disposition: Home Anticipated Discharge Date: 04/29/18 Discharge Date: Expected LOS: 6 Initial Reviewer: [id number] Initial Review Date: 04/23/2018 Generated: 04/29/18 1:49 pm Comments DCP- Discharge Planning Updated by [id number]: Jasbir Killian on 04/29/18 11:[address] Patient Name: FILOMENA OTERO Admission Status: Elective Accout number: [id number] Admission Date: 04-23-2018 : 1955 Admission Diagnosis:ACUTE KIDNEY FAILURE, UNSPECIFIED Attending: CARLY HAYES Current LOS: 6 Anticipated DC Date: 04-29-2018 Planned Disposition: Home WITH HOME HEALTH Primary Insurance: MEDICARE A & B PLANNED EXTERNAL PROVIDER: [facility] RESUMPTION Discharge Planning Comments: CM MET WITH PT IN ROOM TO DISCUSS DISCHARGE PLANNING AND NEEDS. PT REPORTS LIVING AT HOME DEPENDENTLY WITH HER ADULT DAUGHTER WHO ASSISTS WITH TRANSFERS IN AND OUT OF THE SHOWER. PT REPORTS HAVING BEDSIDE COMMODE, SHOWERCHAIR, WALKER AND WHEELCHAIR WITH NO MEDICAL EQUIPMENT PROVIDER PREFERENCE. PT HAS HOME HEALTH WITH [facility] FOR NURSING OUT OF [place]. CM DISCUSSED AVAILABILITY OF HOME HEALTH, REHAB SERVICES AND MEDICAL EQUIPMENT. PT DENIES DISCHARGE NEEDS, REPORTS PLAN TO RETURN HOME, [facility] TO TRANSPORT HOME AT DISCHARGE. IMPORTANT MESSAGE FROM MEDICARE PROVIDED AND EXPLAINED. CM CALLED [facility], [place] OFFICE, , SPOKE TO MIGEL WHO VERIFIED PT IS ON HOLD WITH NURSING. CM FAXED UPDATE TO [facility] AT [phone]. FOR DISCHARGE AND RESUMPTION OF [facility]ALTH, NOTIFY [facility] AT [phone], FAX DISCHARGE INFORMATION TO [facility] AT [phone]. Hat Maker: Jasbir Maria D DCPIA - Discharge Planning Initial Assessment Updated by [email or web address]: Jasbir Killian on 04/29/18 12:42 pm * Is the patient Alert and Oriented? Yes * How many steps to enter\exit or inside your home? * PCP [facility] [place] * Pharmacy [facility] [place] * Preadmission Environment Home with Family * ADLs Partial Dependent * Partial ADLs (Assistance needed) Bathing * Equipment Bedside Commode Shower Chair Walker Wheelchair * Other Equipment NO MEDICAL EQUIPMENT PROVIDER PREFERENCE * List name and contact numbers for known caregivers / representatives who currently or will assist patient after discharge: ARIN OTERO DTR, AMMON BOLTON, * Verbal permission to speak to the caregivers and representatives has been obtained from the patient. N/A * Community resources currently utilized Home Health * Please name any agencies selected above. [facility] - NURSING [phone] * Additional services required to return to the preadmission environment? No * Can the patient safely return to the preadmission environment? Yes * Has this patient been hospitalized within the prior 30 days at any hospital? No Coverage Notice Reviewer: [id number] - Jasbir Killian Notice Issued Date-Time: 04/29/2018 12:30 Notice Type: IM Discharge Notice Notice Delivered To: Patient Relationship to Patient: Paper Counter Name: Delivery Method: HAND - Hand Delivered Sigrid Days: Prior Verbal Notification: Recipient Understood Notice: Yes Recipient Signature: Yes Med Rec Note Co-signed by Attending: Coverage Notice Comment: Last DP export: 04/29/18 11:41 Patient Name: FILOMENA OTERO Page 34119 at 1249 All edits/amendments must be made on the electronic document DICTATION DATE: 04/29/181247 DELI ASSOCIATE: KINZA 04/29/181247 RPT#: [id number] NM DATE: STATUS: ADM IN [facility] [address] [place] [address] END OF REPORT
[2018-04-23 17:34] VITALS: BP 190/94; BMI 25.9
[2018-04-23] MEDS ORDERED: NORVASC2.5 MG PO (17:35)
[2018-04-23] MEDS ORDERED: DIOVAN40 MG PO (17:36)
[2018-04-23 20:00] VITALS: BP 137/78
[2018-04-23 21:01] LABS: BASOPHILS 0.4 % (0-2); EOSINOPHILS 9.3 % (0-7); HEMATOCRIT 29.3 % (36.0-48.0); HEMOGLOBIN 9.6 g/dL (12-16); IMMATURE GRANULOCYTES 0.6 % (0-5); LYMPHOCYTES 13.8 % (15-50); MCH 29.2 pg (26.0-34.0); MCHC 32.8 g/dL (31.0-37.0); MCV 89.1 fL (80.0-100.0); MEAN PLATELET VOLUME 8.8 fL (7.4-10.4); MONOCYTES 9.9 % (2-11); PLATELET COUNT 304 10x3/uL (130-400); RBC 3.29 10x6/uL (4.00-5.40); RDW 17.1 % (11.5-14.5); WBC 8.1 10x3/uL (4.8-10.8)
[2018-04-23 21:12] LABS: APTT 26.8 SECONDS (22.8-39.4); INR 1.24 (0.85-1.17); PROTIME 15.2 SECONDS (11.6-15.0)
[2018-04-23 21:15] LABS: ALBUMIN 2.1 g/dL (3.4-5.0); BILIRUBIN - TOTAL 0.35 mg/dL (0.2-1.3); CALCIUM 8.1 mg/dL (8.5-10.1); CARBON DIOXIDE 26.4 mmol/L (21.0-32.0); CREATININE - SERUM 2.5 mg/dL (0.6-1.3); MAGNESIUM - SERUM 1.2 mg/dL (1.8-2.4); POTASSIUM - SERUM 3.4 mmol/L (3.5-5.1); PROTEIN - SERUM 5.6 g/dL (6.4-8.2)
[2018-04-24] VITALS: BP 138/71
[2018-04-24 05:41] LABS: BASOPHILS 0.4 % (0-2); EOSINOPHILS 9.2 % (0-7); HEMATOCRIT 30.4 % (36.0-48.0); HEMOGLOBIN 9.8 g/dL (12-16); IMMATURE GRANULOCYTES 0.9 % (0-5); LYMPHOCYTES 16.6 % (15-50); MCH 29.2 pg (26.0-34.0); MCHC 32.2 g/dL (31.0-37.0); MCV 90.5 fL (80.0-100.0); MEAN PLATELET VOLUME 9.4 fL (7.4-10.4); MONOCYTES 8.1 % (2-11); NEUTROPHILS 64.8 % (40-80); PLATELET COUNT 345 10x3/uL (130-400); RBC 3.36 10x6/uL (4.00-5.40); RDW 17.3 % (11.5-14.5); WBC 6.9 10x3/uL (4.8-10.8)
[2018-04-24 05:55] LABS: ANION GAP 12.7 mmol/L (8-16); CALCIUM 8.1 mg/dL (8.5-10.1); CARBON DIOXIDE 26.8 mmol/L (21.0-32.0); CREATININE - SERUM 2.5 mg/dL (0.6-1.3); POTASSIUM - SERUM 3.5 mmol/L (3.5-5.1)
[2018-04-24 05:57] VITALS: BP 133/70
[2018-04-24 09:54] VITALS: BP 132/75
[2018-04-24 11:42] VITALS: BP 146/54
[2018-04-24 15:32] LABS: APPEARANCE CLOUDY (CLEAR); BILIRUBIN NEGATIVE (NEGATIVE); COLOR YELLOW (YELLOW); GLUCOSE NEGATIVE (NEGATIVE); KETONE NEGATIVE (NEGATIVE); NITRITE NEGATIVE (NEGATIVE); PROTEIN NEGATIVE (NEGATIVE); UROBILINOGEN NORMAL (NORMAL)
[2018-04-24 15:33] LABS: BACTERIA MODERATE /hpf (NONE SEEN); EPITHELIAL CELLS OCC /hpf (0-5); WHITE CELLS - URINE >50 /hpf (0-5); YEAST OCC /hpf (NONE SEEN)
[2018-04-24 15:47] VITALS: BP 147/68
[2018-04-24 20:49] VITALS: BP 127/77
[2018-04-25] VITALS (13 sets, daily range): BP systolic 121–148; BP diastolic 64–85; Ht 172.7 cm; Wt 74.1 kg
[2018-04-25 06:49] LABS: HEMATOCRIT 28.9 % (36.0-48.0); HEMOGLOBIN 9.7 g/dL (12-16); LYMPHOCYTES 18.7 % (15-50); MCH 30.3 pg (26.0-34.0); MCHC 33.6 g/dL (31.0-37.0); MCV 90.3 fL (80.0-100.0); MEAN PLATELET VOLUME 8.3 fL (7.4-10.4); NEUTROPHILS 70.8 % (40-80); PLATELET COUNT 405 10x3/uL (130-400); RDW 17.3 % (11.5-14.5)
[2018-04-25 06:56] LABS: ANION GAP 13.7 mmol/L (8-16); CALCIUM 8.2 mg/dL (8.5-10.1); CARBON DIOXIDE 24.8 mmol/L (21.0-32.0); CREATININE - SERUM 2.5 mg/dL (0.6-1.3); POTASSIUM - SERUM 3.5 mmol/L (3.5-5.1)
[2018-04-25 15:33] LABS: APPEARANCE HAZY (CLEAR); BILIRUBIN NEGATIVE (NEGATIVE); COLOR RED (YELLOW); GLUCOSE NEGATIVE (NEGATIVE); KETONE NEGATIVE (NEGATIVE); NITRITE NEGATIVE (NEGATIVE); PROTEIN 1+ mg/dL (NEGATIVE); UROBILINOGEN NORMAL (NORMAL)
[2018-04-25 15:35] LABS: BACTERIA FEW /hpf (NONE SEEN); EPITHELIAL CELLS 0-5 /hpf (0-5); RED CELLS - URINE >50 /hpf (0-5)
[2018-04-26] VITALS: BP 135/77
[2018-04-26 04:00] VITALS: BP 136/74
[2018-04-26 06:19] LABS: BASOPHILS 0.9 % (0-2); EOSINOPHILS 10.9 % (0-7); HEMATOCRIT 29.1 % (36.0-48.0); HEMOGLOBIN 9.5 g/dL (12-16); IMMATURE GRANULOCYTES 1.4 % (0-5); LYMPHOCYTES 16.8 % (15-50); MCH 29.4 pg (26.0-34.0); MCHC 32.6 g/dL (31.0-37.0); MCV 90.1 fL (80.0-100.0); MEAN PLATELET VOLUME 8.9 fL (7.4-10.4); MONOCYTES 14.8 % (2-11); NEUTROPHILS 55.2 % (40-80); PLATELET COUNT 380 10x3/uL (130-400); RBC 3.23 10x6/uL (4.00-5.40); RDW 16.8 % (11.5-14.5); WBC 6.4 10x3/uL (4.8-10.8)
[2018-04-26 06:50] LABS: ANION GAP 12.3 mmol/L (8-16); CARBON DIOXIDE 26.1 mmol/L (21.0-32.0); CREATININE - SERUM 2.5 mg/dL (0.6-1.3); POTASSIUM - SERUM 3.4 mmol/L (3.5-5.1)
[2018-04-26 09:04] VITALS: BP 125/75
[2018-04-26 13:05] VITALS: BP 127/86
[2018-04-26 15:57] VITALS: BP 142/96
[2018-04-26 21:06] VITALS: BP 143/69
[2018-04-27 01:00] VITALS: BP 132/73
[2018-04-27 06:07] LABS: BASOPHILS 0.6 % (0-2); EOSINOPHILS 6.1 % (0-7); HEMATOCRIT 29.1 % (36.0-48.0); HEMOGLOBIN 9.5 g/dL (12-16); IMMATURE GRANULOCYTES 3.1 % (0-5); LYMPHOCYTES 15.9 % (15-50); MCH 29.3 pg (26.0-34.0); MCHC 32.6 g/dL (31.0-37.0); MCV 89.8 fL (80.0-100.0); MEAN PLATELET VOLUME 8.6 fL (7.4-10.4); MONOCYTES 16.6 % (2-11); NEUTROPHILS 57.7 % (40-80); PLATELET COUNT 361 10x3/uL (130-400); RBC 3.24 10x6/uL (4.00-5.40); RDW 16.6 % (11.5-14.5); WBC 7.8 10x3/uL (4.8-10.8)
[2018-04-27 06:12] VITALS: BP 147/71
[2018-04-27 06:29] LABS: CARBON DIOXIDE 24.3 mmol/L (21.0-32.0); CREATININE - SERUM 2.4 mg/dL (0.6-1.3); POTASSIUM - SERUM 3.3 mmol/L (3.5-5.1)
[2018-04-27 08:24] VITALS: BP 131/78
[2018-04-27 11:08] VITALS: BP 194/80
[2018-04-27 16:14] VITALS: BP 138/70
[2018-04-27 20:21] VITALS: BP 150/77
[2018-04-28 01:24] VITALS: BP 146/74
[2018-04-28 05:36] VITALS: BP 144/76
[2018-04-28 06:01] LABS: BASOPHILS 1.5 % (0-2); EOSINOPHILS 10.6 % (0-7); HEMATOCRIT 29.5 % (36.0-48.0); HEMOGLOBIN 9.6 g/dL (12-16); IMMATURE GRANULOCYTES 4.2 % (0-5); LYMPHOCYTES 19.8 % (15-50); MCH 29.4 pg (26.0-34.0); MCHC 32.5 g/dL (31.0-37.0); MCV 90.5 fL (80.0-100.0); MEAN PLATELET VOLUME 8.7 fL (7.4-10.4); MONOCYTES 16.9 % (2-11); PLATELET COUNT 403 10x3/uL (130-400); RBC 3.26 10x6/uL (4.00-5.40); RDW 16.6 % (11.5-14.5); WBC 8.3 10x3/uL (4.8-10.8)
[2018-04-28 06:22] LABS: ANION GAP 11.6 mmol/L (8-16); CARBON DIOXIDE 26.6 mmol/L (21.0-32.0); CREATININE - SERUM 2.5 mg/dL (0.6-1.3); POTASSIUM - SERUM 3.2 mmol/L (3.5-5.1)
[2018-04-28 08:12] VITALS: BP 148/62
[2018-04-28 11:20] VITALS: BP 147/78
[2018-04-28 15:41] VITALS: BP 132/69
[2018-04-28 18:33] LABS: APPEARANCE CLEAR (CLEAR); BILIRUBIN NEGATIVE (NEGATIVE); COLOR YELLOW (YELLOW); GLUCOSE NEGATIVE (NEGATIVE); KETONE NEGATIVE (NEGATIVE); NITRITE NEGATIVE (NEGATIVE); PROTEIN TRACE mg/dL (NEGATIVE); SPECIFIC GRAVITY 1.015 (1.005-1.020); UROBILINOGEN NORMAL (NORMAL)
[2018-04-28 18:34] LABS: BACTERIA MODERATE /hpf (NONE SEEN); RED CELLS - URINE OCC /hpf (0-5)
[2018-04-28 18:35] LABS: YEAST >1+ /hpf (NONE SEEN)
[2018-04-28 19:56] VITALS: BP 125/65
[2018-04-29 00:57] VITALS: BP 144/76
[2018-04-29 05:58] VITALS: BP 136/71
[2018-04-29 06:43] LABS: BASOPHILS 1.1 % (0-2); EOSINOPHILS 9.8 % (0-7); HEMATOCRIT 32.2 % (36.0-48.0); HEMOGLOBIN 10.5 g/dL (12-16); IMMATURE GRANULOCYTES 4.3 % (0-5); LYMPHOCYTES 15.2 % (15-50); MCH 29.4 pg (26.0-34.0); MCHC 32.6 g/dL (31.0-37.0); MCV 90.2 fL (80.0-100.0); MEAN PLATELET VOLUME 8.9 fL (7.4-10.4); MONOCYTES 14.5 % (2-11); NEUTROPHILS 55.1 % (40-80); PLATELET COUNT 383 10x3/uL (130-400); RBC 3.57 10x6/uL (4.00-5.40); RDW 16.5 % (11.5-14.5); WBC 9.6 10x3/uL (4.8-10.8)
[2018-04-29 07:07] LABS: ALBUMIN 2.5 g/dL (3.4-5.0); ANION GAP 13.3 mmol/L (8-16); BILIRUBIN - TOTAL 0.36 mg/dL (0.2-1.3); CALCIUM 8.2 mg/dL (8.5-10.1); CARBON DIOXIDE 24.3 mmol/L (21.0-32.0); CREATININE - SERUM 2.4 mg/dL (0.6-1.3); MAGNESIUM - SERUM 1.1 mg/dL (1.8-2.4); POTASSIUM - SERUM 3.6 mmol/L (3.5-5.1); PROTEIN - SERUM 5.9 g/dL (6.4-8.2)
[2018-04-29 08:33] VITALS: BP 131/68
[2018-04-29 11:12] VITALS: BP 142/73
[2018-04-29 15:48] VITALS: BP 136/62
[2018-04-29 20:00] VITALS: BP 110/75
[2018-04-30] VITALS: BP 135/77
[2018-04-30 04:00] VITALS: BP 149/78
[2018-04-30 04:52] LABS: BASOPHILS 1.3 % (0-2); EOSINOPHILS 8.9 % (0-7); HEMATOCRIT 30.9 % (36.0-48.0); IMMATURE GRANULOCYTES 2.2 % (0-5); LYMPHOCYTES 14.9 % (15-50); MCH 29.2 pg (26.0-34.0); MCHC 32.4 g/dL (31.0-37.0); MCV 90.1 fL (80.0-100.0); MEAN PLATELET VOLUME 8.8 fL (7.4-10.4); MONOCYTES 16.4 % (2-11); NEUTROPHILS 56.3 % (40-80); PLATELET COUNT 360 10x3/uL (130-400); RBC 3.43 10x6/uL (4.00-5.40); RDW 16.5 % (11.5-14.5); WBC 9.6 10x3/uL (4.8-10.8)
[2018-04-30 05:29] LABS: BILIRUBIN - TOTAL 0.28 mg/dL (0.2-1.3); CALCIUM 7.8 mg/dL (8.5-10.1); CARBON DIOXIDE 22.5 mmol/L (21.0-32.0); CREATININE - SERUM 2.1 mg/dL (0.6-1.3); POTASSIUM - SERUM 3.5 mmol/L (3.5-5.1); PROTEIN - SERUM 5.5 g/dL (6.4-8.2)
[2018-04-30 08:30] VITALS: BP 105/76
[2018-04-30 11:28] VITALS: BP 121/68
[2018-04-30 16:48] VITALS: BP 128/64
[2018-04-30 20:00] VITALS: BP 134/65
[2018-05-01] VITALS: BP 124/73
[2018-05-01 04:00] VITALS: BP 146/75
[2018-05-01 06:03] LABS: BASOPHILS 0.8 % (0-2); EOSINOPHILS 9.8 % (0-7); HEMATOCRIT 30.7 % (36.0-48.0); IMMATURE GRANULOCYTES 1.6 % (0-5); LYMPHOCYTES 15.5 % (15-50); MCH 29.2 pg (26.0-34.0); MCHC 32.6 g/dL (31.0-37.0); MCV 89.8 fL (80.0-100.0); MEAN PLATELET VOLUME 8.6 fL (7.4-10.4); MONOCYTES 13.4 % (2-11); NEUTROPHILS 58.9 % (40-80); PLATELET COUNT 346 10x3/uL (130-400); RBC 3.42 10x6/uL (4.00-5.40); RDW 16.7 % (11.5-14.5); WBC 10.2 10x3/uL (4.8-10.8)
[2018-05-01 06:29] LABS: ALBUMIN 2.1 g/dL (3.4-5.0); ANION GAP 11.9 mmol/L (8-16); BILIRUBIN - TOTAL 0.28 mg/dL (0.2-1.3); CALCIUM 7.7 mg/dL (8.5-10.1); CARBON DIOXIDE 26.5 mmol/L (21.0-32.0); CREATININE - SERUM 2.2 mg/dL (0.6-1.3); MAGNESIUM - SERUM 1.2 mg/dL (1.8-2.4); POTASSIUM - SERUM 3.4 mmol/L (3.5-5.1); PROTEIN - SERUM 5.6 g/dL (6.4-8.2)
[2018-05-01 08:10] VITALS: BP 132/85
[2018-05-01 11:19] VITALS: BP 122/71
[2018-05-01] MEDS ORDERED: FLAGYL500 MG PO ×3 (14:46→15:09)
[2018-05-01] MEDS ORDERED: VANCOCIN HCL250 MG PO ×3 (14:49→15:08)
[2018-05-01 15:28] VITALS: BP 123/78
== END 2018-05-01 20:13 | disposition home health service (06) | DRG 371 ==
LOC: D.M2 13:32
PROVIDERS: Family Medicine; Internal Medicine Nephrology; Specialist; Student in an Organized Health Care Education/Training Program
PROC: 0T25X0Z Change Drainage Device in Kidney, External Approach (ICD-10-PCS; principal; 2018-04-25 08:15)
DX: A04.72 Enterocolitis due to Clostridium difficile, not specified as recurrent (principal); E43 Unspecified severe protein-calorie malnutrition; N17.9 Acute kidney failure, unspecified; N39.0 Urinary tract infection, site not specified; N13.9 Obstructive and reflux uropathy, unspecified; I12.9 Hypertensive chronic kidney disease with stage 1 through stage 4 chronic kidney disease, or unspecified chronic kidney disease; N18.9 Chronic kidney disease, unspecified; C67.9 Malignant neoplasm of bladder, unspecified; K59.00 Constipation, unspecified; K21.9 Gastro-esophageal reflux disease without esophagitis; Z68.26 Body mass index [BMI] 26.0-26.9, adult